=== PATIENT | female | born 1985 | race Caucasian/White ===

== ENCOUNTER → 2016-08-15 | Outpatient (CLI) | payer BC ==
--- NOTE | 2016-08-15 11:42 | DX ---
Right Foot, 3 Views History: Pain in right foot, M79.671. "Follow up fracture of the base of the fifth metatarsal." No pr evious radiographs of the foot, here. Findings: Nondisplaced fracture of the proximal shaft of the 5th metatarsal has lucency of up to 1.4 mm thickness, laterally. Comparison to previous radiographs, if available elsewhere, would be useful. Hallux valgus and bunion development at the first metatarsal are mild. Impression: Nonacute, nondisplaced fracture of proximal shaft of right 5th metatarsal.
== END ==
LOC: CIMAGING 11:01
PROVIDERS: ATTEND Family Medicine
DX: S92.354A Nondisplaced fracture of fifth metatarsal bone, right foot, initial encounter for closed fracture (principal)
CPT/HCPCS: 73630-PO